=== PATIENT | female | born 2000 | race Caucasian/White ===

== ENCOUNTER 2021-02-03 04:00 | Inpatient (IN) ==
[2021-02-03] MEDS ORDERED: miSOPROStoL 25 MCG TABLET PO PRN (04:30)
[2021-02-03] MEDS ORDERED: Famotidine 20 MG/2 ML VIAL IVP PRN (04:30)
[2021-02-03] MEDS ORDERED: Ondansetron 4 MG/2 ML VIAL IVP PRN (04:30)
[2021-02-03] MEDS ORDERED: Naloxone 0.4 MG/ML INJ IVP PRN (04:30)
[2021-02-03] MEDS ORDERED: Lidocaine 1% 20 ML MDV INFILT PRN (04:30)
[2021-02-03] MEDS ORDERED: Oxytocin 20 units/ LR 1000 mL 20 UNIT/1,000 ML BAG IVC SCH (04:30)
[2021-02-03] MEDS ORDERED: Metoclopramide 10 MG/2 ML VIAL IVP PRN (04:30)
[2021-02-03] MEDS ORDERED: Azithromycin 500 MG in 0.9 % Sodium Chloride 250 ML IVPB PRN (04:30)
[2021-02-03] MEDS ORDERED: *HR* Nalbuphine 10 MG/ML AMPUL IV PRN (04:30)
[2021-02-03 05:26] LABS: Basophils % 0.2 %; Eosinophils # 0.2 K/mcL (0.0-0.6); Eosinophils % 1.1 %; Hematocrit 34.4 % (35.3-44.9); Hemoglobin 11.3 g/dL (11.5-15.4); Immature Granulocytes % 1.1 % (0-4); Lymphocytes # 3.1 K/mcL (0.6-4.6); Lymphocytes % 20.9 %; Mean Corpuscular HGB Conc 32.8 g/dL (31.6-35.5); Mean Corpuscular Hemoglobin 31.7 pg (28.0-33.3); Mean Corpuscular Volume 96.6 fL (83.0-100.0); Mean Platelet Volume 10.3 fL (9.4-12.4); Monocytes # 1.1 K/mcL (0.0-1.3); Monocytes % 7.5 %; Neutrophils # 10.3 K/mcL (1.6-8.9); Platelet Count 245 K/mcL (140-400); Red Blood Count 3.56 M/mcL (3.82-4.97); Red Cell Distribution Width 13.4 % (11.5-14.5); Segmented Neutrophils % 69.2 %; White Blood Count 14.8 K/mcL (4.3-11.1)
[2021-02-03 05:57] LABS: Influenza A PCR Negative (Negative); Influenza B PCR Negative (Negative); Resp. Syncytial Virus PCR Negative (Negative); SARS-CoV-2 by PCR (In House) Negative (Negative)
[2021-02-03] MEDS: Ringers Solution, Lactated 1,000 ML IVC SCH ×3 (09:45→17:11)
[2021-02-03] MEDS ORDERED: EPHEDrine 50 MG/ML VIAL IVP PRN (09:51)
[2021-02-03] MEDS ORDERED: Ropivacaine/PF 0.2% 20 ML VIAL ONE (11:11)
[2021-02-03] MEDS ORDERED: *HR* FentaNYL (PF) 100 MCG/2 ML VIAL ONE (11:11)
[2021-02-03] MEDS: Epidural Premix (fent/bupiv) 110 ML EP SCH ×2 (11:35→19:02)
[2021-02-03 11:50] LABS: Amphetamine Screen,Urine Negative ng/mL (Cutoff=1000); Barbiturate Screen,Urine Negative ng/mL (Cutoff=200); Benzodiazepines Screen,Urine Negative ng/mL (Cutoff=200); Cannabinoid Screen,Urine Negative ng/mL (Cutoff = 50); Cocaine Screen,Urine Negative ng/mL (Cutoff= 300); Opiate Screen,Urine Negative ng/mL (Cutoff=300); Phencyclidine Screen,Urine Negative ng/mL (Cutoff=25)
[2021-02-04] MEDS: Ringers Solution, Lactated 1,000 ML IVC SCH (01:37)
[2021-02-04] MEDS: Epidural Premix (fent/bupiv) 110 ML EP SCH (02:10)
[2021-02-04] MEDS ORDERED: *HR* Labetalol 20 MG/4 ML SYRINGE IVP ONE (02:50)
[2021-02-04] MEDS ORDERED: Oxytocin 20 units/ LR 1000 mL 20 UNIT/1,000 ML BAG IVC ONE (06:33)
[2021-02-04] MEDS ORDERED: Rho Immune Globulin 1,500 UNIT SYRINGE IM PRN (06:33)
[2021-02-04] MEDS ORDERED: Benzocaine/Menthol 56 GM AEROSOL SPRAY TP PRN (06:33)
[2021-02-04] MEDS ORDERED: Ondansetron ODT 4 MG TAB.RAPDIS SL PRN (06:33)
[2021-02-04] MEDS ORDERED: Lanolin 7 G OINT...G. TP PRN (06:33)
[2021-02-04] MEDS ORDERED: Measles/Mumps/Rubella Vacc 0.5 ML VIAL SQ PRN (06:33)
[2021-02-04] MEDS ORDERED: Oxytocin 20 units/ LR 1000 mL 20 UNIT/1,000 ML BAG IVC SCH (06:33)
[2021-02-04] MEDS: Prenatal Vit/FA 1 EACH TABLET PO SCH (08:18)
[2021-02-04] MEDS: Ibuprofen 600 MG TABLET PO SCH ×3 (08:18→22:17)
[2021-02-04] MEDS ORDERED: NON-FORMULARY MEDICATION 1 EACH EACH (Prenat 115/Iron Fum/Folic/Dss [Prenatal 19 Tablet] 1 PO SCH (09:00)
[2021-02-04] MEDS: Acetaminophen 325 MG TABLET PO SCH ×2 (15:00→22:17)
[2021-02-05 08:00] VITALS: BP 120/78; PULSE 77; TEMP 97.8; O2SAT 98
[2021-02-05] MEDS: Prenatal Vit/FA 1 EACH TABLET PO SCH (08:17)
[2021-02-05] MEDS: Ibuprofen 600 MG TABLET PO SCH (08:17)
[2021-02-05] MEDS: Acetaminophen 325 MG TABLET PO SCH (08:17)
[2021-02-05 09:18] LABS: Basophils % 0.2 %; Eosinophils # 0.2 K/mcL (0.0-0.6); Eosinophils % 1.2 %; Hematocrit 30.8 % (35.3-44.9); Hemoglobin 10.3 g/dL (11.5-15.4); Immature Granulocytes % 0.8 % (0-4); Lymphocytes # 2.9 K/mcL (0.6-4.6); Lymphocytes % 17.5 %; Mean Corpuscular HGB Conc 33.4 g/dL (31.6-35.5); Mean Corpuscular Hemoglobin 32.6 pg (28.0-33.3); Mean Corpuscular Volume 97.5 fL (83.0-100.0); Mean Platelet Volume 10.2 fL (9.4-12.4); Monocytes # 1.1 K/mcL (0.0-1.3); Monocytes % 6.9 %; Neutrophils # 12.2 K/mcL (1.6-8.9); Platelet Count 232 K/mcL (140-400); Red Blood Count 3.16 M/mcL (3.82-4.97); Red Cell Distribution Width 13.5 % (11.5-14.5); Segmented Neutrophils % 73.4 %; White Blood Count 16.6 K/mcL (4.3-11.1)
== END 2021-02-05 15:29 | disposition home or self-care (01) | DRG 560 ==
LOC: 1NENULAB 04:21 → 1NENUOBS 02-04 06:32
PROVIDERS: ADMIT Student in an Organized Health Care Education/Training Program; ATTEND Student in an Organized Health Care Education/Training Program